=== PATIENT | female | born 1945 | race Two or more races ===

== ENCOUNTER 2016-09-27 21:53 | Emergency (ER) | payer OTHER ==
[~2016-09-27] VITALS: Ht 154.9 cm; Wt 65.8 kg
[2016-09-28 01:33] VITALS: BP 159/67
[2016-09-28] MEDS ORDERED: IBUPROFEN 800 MG TAB PO ONE (02:45)
== END 2016-09-28 03:19 | disposition home or self-care (01) ==
LOC: ER 21:57
DX: S93.402A Sprain of unspecified ligament of left ankle, initial encounter (principal); M25.552 Pain in left hip; M25.562 Pain in left knee; Z90.49 Acquired absence of other specified parts of digestive tract; M19.90 Unspecified osteoarthritis, unspecified site; E78.5 Hyperlipidemia, unspecified; E11.9 Type 2 diabetes mellitus without complications; I10 Essential (primary) hypertension; X58.XXXA Exposure to other specified factors, initial encounter; Y93.89 Activity, other specified; Y92.89 Other specified places as the place of occurrence of the external cause; Y99.8 Other external cause status
CPT/HCPCS: 73502; 73562; 73610; 73630; 82962